=== PATIENT | male | born 1980 | race Two or more races ===

== ENCOUNTER 2016-10-10 16:27 | Emergency (ER) | payer MEDICAID ==
[~2016-10-10] VITALS: Ht 185.4 cm; Wt 108.9 kg
[2016-10-10] MEDS ORDERED: Lidocaine 1% 10mg/ml/Epi 0.005mg/ml 30ml vial INJ ONE (16:30)
[2016-10-10] MEDS ORDERED: LORazepam Inj 2mg/ml 1ml IV ONE (16:30)
--- NOTE | 2016-10-10 16:40 | Emergency Room Report ---
History of Present Illness General Chief Complaint: Syncope Source: Patient Present Illness HPI The patient presents via EMS for possible syncope. The patient doesn't remember what happened. He hit his chin and also the left side of his face. He feels like he banged his face. He has a history of alcohol use and also has had seizures in the past. He can't state whether he had a seizure or not. He denies other drugs. He denies ever being treated for seizures. No LOPEZ, NVD, chest pain, cough, sore throat, tongue pain, extremity pain, neck pain, bleeding problems. Not SI or HI. States tetanus < 10. Allergies: Coded Allergies: No Known Allergies (Unverified , 10/10/16) Patient History Past Medical History: see triage record Social History: Reports: alcohol use, Denies: drug use Social History Narrative homeless Reviewed Nursing Documentation: PMH: Agreed, PSxH: Agreed Nursing Documentation-PM Past Medical History: No History, Except For Hx Cardiac Problems: Yes - Alcohol abuse, DT Hx Hypertension: Yes Review of Systems All Other Systems: negative except mentioned in HPI Physical Exam Vital Signs Date Time Temp Pulse Resp B/P Pulse Ox O2 Delivery O2 Flow Rate FiO2 10/10/16 16:26 97.2 90 16 83/42 99 Room Air Sp02 EP Interpretation: reviewed, normal General Appearance: no apparent distress, alert, GCS 15, other - disheveled Head: normocephalic, atraumatic Eyes: bilateral eye PERRL, bilateral eye Scleral Injection ENT: moist mucus membranes - no lingual macerations Neck: full range of motion, no bony tend Respiratory: lungs clear, normal breath sounds Cardiovascular #1: regular rate, rhythm Cardiovascular #2: 2+ radial (R) Gastrointestinal: normal inspection, normal bowel sounds, non tender, no mass, non-distended Musculoskeletal: back normal, gait/station normal, normal range of motion Neurologic: alert, oriented x3, motor strength/tone normal, DTRs symmetric, sensory intact, speech normal Psychiatric: mood/affect normal Skin: warm/dry, abrasions - L cheek and older ones on knuckles without erythema , laceration - L under chin Procedures Laceration/Wound Repair Laceration/Wound Repair : Consent: Verbal Wound Location: face Wound's Depth, Shape: superficial Wound Length (cm): 3 Wound Explored: relatively clean Irrigated w/ Saline (ccs): 30 Betadine Prep?: Yes Anesthesia: Lidocaine w/ Epi Wound Debrided: none Suture Size/Type: 6:0, proline Layer Closure?: Yes Deep Layer Suture Size/Type: 6:0 Sterile Dressing Applied?: No - bacitracin Patient Tolerated: Well Complications: None Medical Decision Making Diagnostic Impression: Primary Impression: Facial laceration Qualified Codes: S01.81XA - Laceration without foreign body of other part of head, initial encounter Additional Impression: Alcohol intoxication Qualified Codes: F10.129 - Alcohol abuse with intoxication, unspecified ER Course The patient presents with facial trauma after episode of loss of consciousness. Differential includes seizure, syncope, acute myocardial infarction, electrolyte abnormality, head injury amongst others. Evaluation with labs, EKG , CT and chest x-ray. His tetanus is up-to-date and he needs to have his laceration and abrasion attended to. Given Ativan 1 mg to prevent him from seizing at this time. CT, EKG and labs remarkable only for elevated alcohol. His blood alcohol so high, it is unlikely that he had a seizure. It's most likely that the patient lost balance and fell and hit his neck and face. The laceration was repaired. The patient received IV hydration. Patient improved. Signed out to Dr. Randolph. Laboratory Tests Test 10/10/16 16:49 White Blood Count 4.0 K/UL (4.8-10.8) L Red Blood Count 2.94 M/UL (4.70-6.10) L Hemoglobin 10.7 G/DL (14.2-18.0) L Hematocrit 28.8 % (42.0-52.0) L Mean Corpuscular Volume 98 FL (80-99) Mean Corpuscular Hemoglobin 36.3 PG (27.0-31.0) H Mean Corpuscular Hemoglobin Concent 37.1 G/DL (32.0-36.0) H Red Cell Distribution Width 12.2 % (11.6-14.8) Platelet Count 75 K/UL (150-450) L Mean Platelet Volume 5.4 FL (6.5-10.1) L Neutrophils (%) (Auto) 54.9 % (45.0-75.0) Lymphocytes (%) (Auto) 30.6 % (20.0-45.0) Monocytes (%) (Auto) 12.4 % (1.0-10.0) H Eosinophils (%) (Auto) 0.7 % (0.0-3.0) Basophils (%) (Auto) 1.3 % (0.0-2.0) Sodium Level 137 mEQ/L (135-145) Potassium Level 3.2 mEQ/L (3.4-4.9) L Chloride Level 95 mEQ/L (98-107) L Carbon Dioxide Level 23 mEQ/L (20-30) Anion Gap 19 (5-15) H Blood Urea Nitrogen 11 mg/dL (7-23) Creatinine 1.5 mg/dL (0.7-1.2) H Estimate Glomerular Filtration Rate 52.7 mL/min (>60) Glucose Level 105 mg/dL (74-106) Calcium Level 8.5 mg/dL (8.6-10.2) L Total Bilirubin 0.9 mg/dL (0.0-1.2) Aspartate Amino Transferase (AST) 248 U/L (5-40) H Alanine Aminotransferase (ALT) 77 U/L (3-41) H Alkaline Phosphatase 176 U/L (40-129) H Total Creatine Kinase 180 U/L (38-174) H Total Protein 6.5 g/dL (6.6-8.7) L Albumin 3.3 g/dL (3.5-5.2) L Globulin 3.2 g/dL Albumin/Globulin Ratio 1.0 (1.0-2.7) Salicylates Level < 1 mg/dL (10-30) L Acetaminophen Level < 10 ug/mL (10-30) L Phenytoin (Dilantin) Level < 0.8 ug/mL (10-20) L Serum Alcohol 310 mg/dL EKG Diagnostic Results Rate: tachycardiac ST Segments: no acute changes Rhythm Strip Diag. Results EP Interpretation: yes Rhythm: no PVC's, no ectopy, other - ST CT/MRI/US Diagnostic Results CT/MRI/US Diagnostic Results : Imaging Test Ordered: head Impression no bleed, mass, fx Last Vital Signs Date Time Temp Pulse Resp B/P Pulse Ox O2 Delivery O2 Flow Rate FiO2 10/10/16 16:26 97.2 90 16 83/42 99 Room Air Status: improved Donte Kendrick M.D. Oct 10, 2016 16:40
[2016-10-10 16:45] VITALS: BP 73/38
[2016-10-10] MEDS ORDERED: Bacitracin Oint UD TOPIC ONE (16:45)
[2016-10-10 17:00] VITALS: BP 91/44
[2016-10-10 17:00] LABS: MEAN CORPUSCULAR HEMOGLOBIN 36.3 PG (27.0-31.0); MEAN CORPUSCULAR HGB CONC 37.1 G/DL (32.0-36.0); MEAN CORPUSCULAR VOLUME 98 FL (80-99); MEAN PLATELET VOLUME 5.4 FL (6.5-10.1); PLATELET COUNT 75 K/UL (150-450); RED BLOOD COUNT 2.94 M/UL (4.70-6.10); RED CELL DISTRIBUTION WIDTH 12.2 % (11.6-14.8)
[2016-10-10 17:02] LABS: BASOPHILS % (AUTO) 1.3 % (0.0-2.0); EOSINOPHILS % (AUTO) 0.7 % (0.0-3.0); LYMPHOCYTES % (AUTO) 30.6 % (20.0-45.0); MONOCYTES % (AUTO) 12.4 % (1.0-10.0); NEUTROPHILS % (AUTO) 54.9 % (45.0-75.0)
[2016-10-10 17:30] VITALS: BP 104/35
[2016-10-10 17:31] LABS: ACETAMINOPHEN < 10 ug/mL (10-30); ALANINE AMINOTRANSFERASE 77 U/L (3-41); ALCOHOL 310 mg/dL; ANION GAP 19 (5-15); ASPARTATE AMINO TRANSFERASE 248 U/L (5-40); CALCIUM 8.5 mg/dL (8.6-10.2); CARBON DIOXIDE 23 mEQ/L (20-30); CHLORIDE 95 mEQ/L (98-107); CREATININE 1.5 mg/dL (0.7-1.2); GLOMERULAR FILTRATION RATE 52.7 mL/min (>60); HEMOLYSIS 6; POTASSIUM 3.2 mEQ/L (3.4-4.9); SODIUM 137 mEQ/L (135-145); TOTAL PROTEIN 6.5 g/dL (6.6-8.7)
[2016-10-10 19:30] VITALS: BP 92/58
[2016-10-10 21:30] VITALS: BP 114/73
[2016-10-11] VITALS (7 sets, daily range): BP systolic 117–142; BP diastolic 67–87
[2016-10-11] MEDS ORDERED: LORazepam Inj 2mg/ml 1ml IV ONE (06:30)
--- NOTE | 2016-10-11 08:53 | Diagnostic Imaging Report ---
Indications: Clinical syncope and head trauma Technique: Spiral acquisitions obtained through the brain. Angled axial and coronal 5 x 5 mm slices were reconstructed. Total dose length product 1386 mGycm. CTDI vol(s) 70 mGy. Dose reduction achieved using automated exposure control Comparison: None Findings: No acute hemorrhage or edema. No mass effect or midline shift. The calvarium is intact. Is minimal focal left supraorbital scalp soft tissue swelling.. The ventricles and extra axial CSF spaces are prominent for age. Normal nava-white differentiation. Visualized orbits and sinuses are unremarkable. Impression: Evidence of cerebral volume loss, advanced for age. Negative for acute intracranial bleed or mass effect Evidence of minimal left supraorbital scalp soft tissue injury This agrees with the preliminary interpretation provided overnight by Dr. Rogers The CT scanner at [facility] is accredited by the [employer] and the scans are performed using protocols designed to limit radiation exposure to as low as reasonably achievable to attain images of sufficient resolution adequate for diagnostic evaluation.
--- NOTE | 2016-10-12 13:28 | Cardiology Report ---
APPROVED REPORT EKG Measurement Heart [id number] Sinus tachycardia Nonspecific intraventricular conduction delay Borderline ECG
== END 2016-10-11 11:52 | disposition home or self-care (01) ==
LOC: EDSEX 16:27 → EDBD 16:27 → EMR 16:56 → EDBEDREQSVC 10-11 07:53 → EMR 10-11 11:52
DX: S01.81XA Laceration without foreign body of other part of head, initial encounter (principal); S00.81XA Abrasion of other part of head, initial encounter; W22.8XXA Striking against or struck by other objects, initial encounter; Y92.89 Other specified places as the place of occurrence of the external cause; F10.129 Alcohol abuse with intoxication, unspecified; Y90.8 Blood alcohol level of 240 mg/100 ml or more; I10 Essential (primary) hypertension
CPT/HCPCS: 12013; 36415; 70450; 80053; 80185; 80329; 82550; 82962; 85025; 93005; 96374; 99285; J2405; Z7502